=== PATIENT | male | born 2000 | race Caucasian/White ===

== ENCOUNTER 2020-02-06 20:03 | Emergency (ER) | payer SELFPAY ==
[~2020-02-06] VITALS: Ht 175.3 cm; Wt 59.1 kg
[2020-02-06 20:05] VITALS: TEMP 98.2
[2020-02-06 20:20] LABS: BASO % 0.3 % (0.0-2.0); EOS % 0.2 % (0-4.0); GRAN # 8.7 (1.4-6.5); GRAN % 82.5 % (42.2-75.2); HEMATOCRIT 42.8 % (42.0-52.0); HEMOGLOBIN 15.5 g/dl (13.5-18.0); LYMPH # 1.1 (1.2-3.4); LYMPH % 10.8 % (20.0-51.0); MEAN CELL VOLUME 82 fl (80.0-100.0); MEAN CORPUSCULAR HEMOGLOBIN 30 pg (27.0-31.0); MEAN CORPUSCULAR HGB CONC 36 g/dl (33.0-37.0); MEAN PLATELET VOLUME 8.8 fl (7.4-10.4); MONO # 0.6 (0.1-0.6); MONO % 5.7 % (1.7-9.3); PLATELET COUNT 221 K/mm3 (130-400); RED BLOOD COUNT 5.21 M/mm3 (4.20-5.60); REDCELL DISTRIBUTION WIDTH-CV 12.9 % (11.5-14.5)
[2020-02-06 20:33] LABS: ARTERIAL BLD GAS O2 SATURATION 95.1 % (92-100); ARTERIAL BLD GAS TCO2 CT 25.2; ARTERIAL BLOOD GAS BASE EXCESS 0.9 (-2-2); ARTERIAL BLOOD GAS HCO3 24.1 meq/L (22-26); ARTERIAL BLOOD GAS PCO2 34.7 mmHg (35-45); ARTERIAL BLOOD GAS PO2 73.8 mmHg (80-100); ARTERIAL BLOOD GAS pH 7.46 (7.35-7.45)
[2020-02-06 20:45] LABS: BILIRUBIN,TOTAL 1.4 mg/dL (0.0-1.0); CALCIUM 10.1 mg/dL (8.4-10.2); CREATININE, serum 1.03 (0.66-1.25)
[2020-02-06 22:06] VITALS: BP 100/84; PULSE 85
== END 2020-02-06 22:07 | disposition home or self-care (01) ==
LOC: COL.ER 20:03
PROVIDERS: Emergency Medicine
DX: J70.5 Respiratory conditions due to smoke inhalation (principal); Z88.8 Allergy status to other drugs, medicaments and biological substances
CPT/HCPCS: J2060; J7030

== ENCOUNTER 2020-09-18 17:05 | Emergency (ER) | payer SELFPAY ==
[~2020-09-18] VITALS: Ht 177.8 cm; Wt 59.1 kg
[2020-09-18 17:06] VITALS: TEMP 98.1
[2020-09-18 18:36] VITALS: BP 129/51; PULSE 88
== END 2020-09-18 18:43 | disposition home or self-care (01) ==
LOC: COL.ER 17:05
DX: S09.90XA Unspecified injury of head, initial encounter (principal); S16.1XXA Strain of muscle, fascia and tendon at neck level, initial encounter; M79.661 Pain in right lower leg; Z88.1 Allergy status to other antibiotic agents; V89.2XXA Person injured in unspecified motor-vehicle accident, traffic, initial encounter

== ENCOUNTER 2021-10-26 19:02 | Emergency (ER) | payer BC ==
[~2021-10-26] VITALS: Ht 177.8 cm; Wt 56.8 kg
[2021-10-26 19:08] VITALS: BP 121/70; PULSE 104; TEMP 98.3
[2021-10-26] MEDS ORDERED: AMOXICILLIN 8751 TAB PO (19:50)
== END 2021-10-26 19:04 | disposition home or self-care (01) ==
LOC: COL.ER 19:02
DX: K04.7 Periapical abscess without sinus (principal); Z88.1 Allergy status to other antibiotic agents; Z28.310 Unvaccinated for COVID-19
CPT/HCPCS: J1885